=== PATIENT | male | born 1970 | race Caucasian/White ===

== ENCOUNTER 2019-12-29 14:29 | Emergency (ER) | payer MEDICAID, OTHER ==
[~2019-12-29] VITALS: Ht 175.3 cm; Wt 81.6 kg
[2019-12-29 15:35] VITALS: BP 145/81
[2019-12-29] MEDS ORDERED: CLINDAMYCIN 600MG IV 50 ML IV ONE (17:00)
[2019-12-29] MEDS ORDERED: KETOROLAC TROMETH 30 MG/ML 1ML VIAL IV ONE (17:00)
[2019-12-29] MEDS ORDERED: methylPREDNISolone SOD SUCC 125 MG/2 ML VL IV ONE (17:00)
== END 2019-12-29 18:42 | disposition home or self-care (01) ==
LOC: ER 14:29
DX: K12.2 Cellulitis and abscess of mouth (principal); K08.89 Other specified disorders of teeth and supporting structures; K21.9 Gastro-esophageal reflux disease without esophagitis; F17.210 Nicotine dependence, cigarettes, uncomplicated; Z88.0 Allergy status to penicillin
CPT/HCPCS: 96365; 96375; 99284; J1885; J2930; J3490

== ENCOUNTER 2024-06-16 19:13 | Emergency (ER) | payer MEDICAID ==
[~2024-06-16] VITALS: Ht 172.7 cm; Wt 68.2 kg
[2024-06-16 19:20] VITALS: BP 148/86; PULSE 96; RESP 18; O2SAT 97
[2024-06-16] MEDS: ACETAMINOPHEN 325 MG TAB PO ONE (19:30)
[2024-06-16] MEDS: LIDOCAINE 1% HCL (LOCAL ANESTH.) INJ 20ML MDV ID ONE (19:30)
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
== END 2024-06-16 21:35 | disposition home or self-care (01) ==
LOC: EDBD 19:13 → ER 19:13
DX: S01.81XA Laceration without foreign body of other part of head, initial encounter (principal); K21.9 Gastro-esophageal reflux disease without esophagitis; F17.210 Nicotine dependence, cigarettes, uncomplicated; Z88.0 Allergy status to penicillin; Y04.2XXA Assault by strike against or bumped into by another person, initial encounter; Y93.89 Activity, other specified; Y92.89 Other specified places as the place of occurrence of the external cause; Y99.8 Other external cause status
CPT/HCPCS: 12011; 70450; 72125; 99284; J2003